=== PATIENT | female | born 1975 | race Caucasian/White ===

== ENCOUNTER 2017-11-20 12:58 | Inpatient (IN) | payer MEDICAID, OTHER ==
[2017-11-20] MEDS: ALBUTEROL 0.083% (NEB) 2.5 MG/3 ML AMP INH (14:03)
[2017-11-20] MEDS: IPRATROPIUM (NEB) 0.5 MG/2.5 ML AMP INH (14:04)
[2017-11-20] MEDS: FAMOTIDINE 20 MG INJ IV (14:12)
[2017-11-20] MEDS: DEXAMETHASONE 10 MG/ML 1 ML INJ IV (14:12)
[2017-11-20] MEDS: EPINEPHrine 1 MG INJ IM (14:12)
[2017-11-20] MEDS: DIPHENHYDRAMINE 50 MG INJ IV (14:12)
[2017-11-20] MEDS: AMPICILLIN/SULB 3 GM/NS (PMX) 100 ML IVPB (14:12)
[2017-11-20] MEDS: SODIUM CHLORIDE 0.9% 1L BAG IV* (14:13)
[2017-11-20] MEDS: SOD CHLORIDE 0.9% 100 ML (14:15)
[2017-11-20] MEDS: IOHEXOL 300MG/ML 150 ML BTL (14:15)
[2017-11-20 14:17] LABS: ADD MAN DIFF? NO
[2017-11-20 14:18] LABS: WHITE BLOOD COUNT 7.4 10^3/ul (4.8-10.8)
[2017-11-20 14:18] LABS: BASOPHILS % 0.8 % (0.0-2.0); EOSINOPHILS % 1.4 % (0.0-7.0); HEMATOCRIT 29.9 % (37.0-47.0); HEMOGLOBIN 9.6 g/dl (12.0-16.0); LYMPHOCYTES % 10.7 % (15.0-51.0); MEAN CORPUSCULAR HEMOGLOBIN 27.8 pg (29.0-33.0); MEAN CORPUSCULAR HGB CONC 32.1 g/dl (32.0-37.0); MEAN CORPUSCULAR VOLUME 86.7 fl (82.0-101.0); MEAN PLATELET VOLUME 11.4 fl (7.4-10.4); MONOCYTES % 4.5 % (0.0-11.0); NEUTROPHILS % 82.2 % (39.0-77.0); PLATELET COUNT 177 10^3/UL (140-415); RED BLOOD COUNT 3.45 10^6/ul (4.20-5.40); RED CELL DISTRIBUTION WIDTH 14.1 % (11.5-14.5)
[2017-11-20 14:19] LABS: BASOPHIL # 0.1 10^3/ul (0.0-0.1); EOSINOPHILS # 0.1 10^3/ul (0.0-0.5); LYMPHOCYTES # 0.8 10^3/ul (0.8-2.9); MONOCYTE # 0.3 10^3/ul (0.3-0.9); NEUTROPHIL # 6.1 10^3/ul (1.6-7.5)
[2017-11-20 14:36] LABS: ALANINE AMINOTRANSFERASE 62 IU/L (13-69); ALBUMIN/GLOBULIN RATIO 1.04; ALKALINE PHOSPHATASE 72 IU/L (42-121); ANION GAP 18 (8-16); ASPARTATE AMINO TRANSFERASE 72 IU/L (15-46); BILIRUBIN,INDIRECT 0.5 mg/dl (0-1.1); BILIRUBIN,TOTAL 0.5 mg/dl (0.2-1.3); BLOOD UREA NITROGEN 9 mg/dl (7-20); CALCIUM 9.5 mg/dl (8.4-10.2); CARBON DIOXIDE 27 mmol/L (21-31); CHLORIDE 104 mmol/L (97-110); CREATININE 1.05 mg/dl (0.44-1.00); GLUCOSE 93 mg/dl (70-220); POTASSIUM 3.7 mmol/L (3.5-5.1); SODIUM 145 mmol/L (135-144); TOTAL PROTEIN 9.8 g/dl (6.1-8.1)
[2017-11-20 14:37] LABS: ADD UMIC YES; UR ASCORBIC ACID NEGATIVE (NEGATIVE); UR BILIRUBIN (Dip) NEGATIVE (NEGATIVE); UR BLOOD (Dip) NEGATIVE (NEGATIVE); UR CLARITY CLEAR (CLEAR); UR COLOR YELLOW (YELLOW); UR GLUCOSE (Dip) NEGATIVE (NEGATIVE); UR KETONES (Dip) NEGATIVE (NEGATIVE); UR LEUKOCYTE ESTERASE (Dip) NEGATIVE Leu/ul (NEGATIVE); UR MUCUS FEW /HPF (NONE SEEN); UR NITRITE (Dip) NEGATIVE (NEGATIVE); UR NONSQUAMOUS EPITHELIAL CELL 1 /HPF (NONE SEEN); UR RBC 1 /HPF (0-5); UR TOTAL PROTEIN (Dip) 2+ mg/dl (NEGATIVE); UR UROBILINOGEN (Dip) NEGATIVE (NEGATIVE); UR WBC 7 /HPF (0-5)
[2017-11-20 14:38] LABS: INR 1.05; PROTIME 13.8 Sec (11.9-14.9); PT RATIO 1.1
[2017-11-20 14:42] LABS: LACTIC ACID 0.8 mmol/L (0.5-2.0)
[2017-11-20 14:49] LABS: TROPONIN-I < 0.010 ng/ml (0.000-0.120)
[2017-11-20] MEDS: VANCOMYCIN 1 GM (PMX) 250 ML IVPB (15:21)
[2017-11-20 16:44] LABS: LACTIC ACID 3.1 mmol/L (0.5-2.0)
[2017-11-20] MEDS: DEXTROSE 5%-0.45% NACL 1,000 ML IV (17:50)
[2017-11-20] MEDS ORDERED: ONDANSETRON 4 MG INJ IV ×2 (18:00)
[2017-11-20] MEDS ORDERED: NACL 0.9% 3 ML SYG IV (18:00)
[2017-11-20] MEDS ORDERED: DOCUSATE SODIUM 100 MG CAP PO (18:00)
[2017-11-20] MEDS ORDERED: VANCOMYCIN IV PER PHARMACY XX (18:00)
[2017-11-20] MEDS ORDERED: MAGNESIUM HYDROXIDE 30ML CUP PO (18:00)
[2017-11-20] MEDS ORDERED: BISACODYL (EC) 5 MG TAB PO (18:00)
[2017-11-20] MEDS ORDERED: ACETAMINOPHEN 325 MG TAB PO (18:00)
[2017-11-20] MEDS ORDERED: morphine 2 MG INJ IV (18:00)
[2017-11-20] MEDS ORDERED: LORAZEPAM 0.5 MG TAB PO (18:00)
[2017-11-20] MEDS: PIPER-TAZO 3.375 GM IV (PMX) 100 ML IVPB (18:07)
[2017-11-20] MEDS: DEXAMETHASONE 4 MG/ML 1 ML INJ IV (18:07)
[2017-11-20 18:21] LABS: LACTIC ACID 2.2 mmol/L (0.5-2.0)
[2017-11-21] MEDS: DEXAMETHASONE 4 MG/ML 1 ML INJ IV ×5 (01:24→23:59)
[2017-11-21] MEDS: PIPER-TAZO 3.375 GM IV (PMX) 100 ML IVPB ×5 (01:24→23:59)
[2017-11-21] MEDS: HEPARIN 5,000 UNIT/0.5 ML VIAL SC ×4 (01:26→21:30)
[2017-11-21] MEDS: VANCOMYCIN 1 GM in 250 ML IVPB ×3 (02:36→23:56)
[2017-11-21 05:42] LABS: ADD MAN DIFF? NO
[2017-11-21 05:47] LABS: ABNORMAL IP MESSAGE 1; BASOPHILS % 0.1 % (0.0-2.0); HEMATOCRIT 24.8 % (37.0-47.0); HEMOGLOBIN 7.9 g/dl (12.0-16.0); LYMPHOCYTES # 0.3 10^3/ul (0.8-2.9); LYMPHOCYTES % 3.3 % (15.0-51.0); MEAN CORPUSCULAR HEMOGLOBIN 27.8 pg (29.0-33.0); MEAN CORPUSCULAR HGB CONC 31.9 g/dl (32.0-37.0); MEAN CORPUSCULAR VOLUME 87.3 fl (82.0-101.0); MEAN PLATELET VOLUME 12.1 fl (7.4-10.4); MONOCYTE # 0.1 10^3/ul (0.3-0.9); MONOCYTES % 0.9 % (0.0-11.0); NEUTROPHIL # 8.6 10^3/ul (1.6-7.5); NEUTROPHILS % 95.1 % (39.0-77.0); PLATELET COUNT 142 10^3/UL (140-415); RED BLOOD COUNT 2.84 10^6/ul (4.20-5.40); RED CELL DISTRIBUTION WIDTH 14.2 % (11.5-14.5)
[2017-11-21 06:07] LABS: POSITIVE DIFF @See below
[2017-11-21 06:11] LABS: ALANINE AMINOTRANSFERASE 44 IU/L (13-69); ALBUMIN 4.3 g/dl (3.3-4.9); ALKALINE PHOSPHATASE 59 IU/L (42-121); ANION GAP 19 (8-16); ASPARTATE AMINO TRANSFERASE 44 IU/L (15-46); BILIRUBIN,INDIRECT 0.3 mg/dl (0-1.1); BILIRUBIN,TOTAL 0.3 mg/dl (0.2-1.3); BLOOD UREA NITROGEN 8 mg/dl (7-20); CALCIUM 8.8 mg/dl (8.4-10.2); CARBON DIOXIDE 23 mmol/L (21-31); CHLORIDE 107 mmol/L (97-110); CREATININE 0.99 mg/dl (0.44-1.00); GLUCOSE 171 mg/dl (70-220); POTASSIUM 3.4 mmol/L (3.5-5.1); SODIUM 146 mmol/L (135-144); TOTAL PROTEIN 7.6 g/dl (6.1-8.1)
[2017-11-21 06:11] LABS: LACTIC ACID 3.1 mmol/L (0.5-2.0)
[2017-11-21 06:29] LABS: FREE T4 (FREE THYROXINE) < 0.07 ng/dl (0.64-1.79)
[2017-11-21] MEDS: ACETAMINOPHEN 325 MG TAB PO ×2 (07:22→21:26)
[2017-11-21] MEDS: OXYCODONE/ACETAMINOPHEN (5/325) TAB PO (11:58)
[2017-11-21 12:20] LABS: HEMATOCRIT 24.3 % (37.0-47.0); HEMOGLOBIN 7.7 g/dl (12.0-16.0)
[2017-11-21 12:58] LABS: LACTIC ACID 2.2 mmol/L (0.5-2.0)
[2017-11-21] MEDS: DEXTROSE 5%-0.45% NACL 1,000 ML IV ×2 (13:35→19:11)
[2017-11-21] MEDS ORDERED: morphine LIQ (10 MG/5 ML) CUP PO (20:30)
[2017-11-21] MEDS: LACTOBACILLUS RHAMNOSUS CAP PO (21:25)
[2017-11-21 23:20] LABS: VANCOMYCIN,TROUGH 12.6 ug/ml (10.0-20.0)
[2017-11-22 05:54] LABS: ADD MAN DIFF? NO
[2017-11-22 05:59] LABS: ABNORMAL IP MESSAGE 1; BASOPHILS % 0.1 % (0.0-2.0); HEMATOCRIT 23.4 % (37.0-47.0); HEMOGLOBIN 7.5 g/dl (12.0-16.0); LYMPHOCYTES # 0.4 10^3/ul (0.8-2.9); LYMPHOCYTES % 3.1 % (15.0-51.0); MEAN CORPUSCULAR HEMOGLOBIN 27.9 pg (29.0-33.0); MEAN CORPUSCULAR HGB CONC 32.1 g/dl (32.0-37.0); MEAN PLATELET VOLUME 12.5 fl (7.4-10.4); MONOCYTE # 0.2 10^3/ul (0.3-0.9); MONOCYTES % 1.7 % (0.0-11.0); NEUTROPHIL # 12.6 10^3/ul (1.6-7.5); NEUTROPHILS % 93.7 % (39.0-77.0); PLATELET COUNT 149 10^3/UL (140-415); RED BLOOD COUNT 2.69 10^6/ul (4.20-5.40); RED CELL DISTRIBUTION WIDTH 14.6 % (11.5-14.5)
[2017-11-22 05:59] LABS: WHITE BLOOD COUNT 13.4 10^3/ul (4.8-10.8)
[2017-11-22 06:06] LABS: POSITIVE DIFF @See below
[2017-11-22] MEDS: PIPER-TAZO 3.375 GM IV (PMX) 100 ML IVPB ×2 (06:15→11:33)
[2017-11-22] MEDS: DEXAMETHASONE 4 MG/ML 1 ML INJ IV ×2 (06:15→11:19)
[2017-11-22] MEDS: HEPARIN 5,000 UNIT/0.5 ML VIAL SC ×2 (06:17→13:14)
[2017-11-22 06:19] LABS: INR 1.04; PROTIME 13.7 Sec (11.9-14.9); PT RATIO 1.1
[2017-11-22 06:20] LABS: PARTIAL THROMBOPLASTIN TIME 33.2 Sec (25.0-35.0)
[2017-11-22 06:44] LABS: IRON 25 ug/dl (35-150)
[2017-11-22 06:53] LABS: % IRON SATURATION 7 % SAT (22-52); TOTAL IRON BINDING CAPACITY 369 ug/dl (241-421)
[2017-11-22 07:03] LABS: HEMOGLOBIN A1C 5.4 % (0-5.9)
[2017-11-22 07:06] LABS: ALANINE AMINOTRANSFERASE 27 IU/L (13-69); ALBUMIN 3.7 g/dl (3.3-4.9); ALBUMIN/GLOBULIN RATIO 1.19; ALKALINE PHOSPHATASE 58 IU/L (42-121); ANION GAP 15 (8-16); ASPARTATE AMINO TRANSFERASE 32 IU/L (15-46); BILIRUBIN,INDIRECT 0.2 mg/dl (0-1.1); BILIRUBIN,TOTAL 0.2 mg/dl (0.2-1.3); BLOOD UREA NITROGEN 11 mg/dl (7-20); CALCIUM 8.7 mg/dl (8.4-10.2); CARBON DIOXIDE 24 mmol/L (21-31); CHLORIDE 110 mmol/L (97-110); CREATININE 0.96 mg/dl (0.44-1.00); GLUCOSE 137 mg/dl (70-220); MAGNESIUM 2.1 mg/dl (1.7-2.5); PHOSPHORUS 2.4 mg/dl (2.5-4.9); POTASSIUM 3.8 mmol/L (3.5-5.1); SODIUM 145 mmol/L (135-144); TOTAL PROTEIN 6.8 g/dl (6.1-8.1)
[2017-11-22 07:19] LABS: TRIIODOTHYRONINE 0.25 ng/ml (0.97-1.69)
[2017-11-22 07:23] LABS: FERRITIN 18.6 ng/ml (6.2-137.0)
[2017-11-22 08:15] LABS: FREE T4 (FREE THYROXINE) < 0.07 ng/dl (0.64-1.79)
[2017-11-22] MEDS: LACTOBACILLUS RHAMNOSUS CAP PO (08:23)
[2017-11-22] MEDS: VANCOMYCIN 1 GM in 250 ML IVPB (12:42)
[2017-11-22 15:12] LABS: OCCULT BLOOD STOOL NEGATIVE (NEGATIVE)
[2017-11-22] MEDS: LEVOTHYROXINE 25 MCG TAB PO (15:15)
[2017-11-22] MEDS: AMOXICILLIN/CLAV 875 MG TAB PO (17:34)
[2017-11-23] MEDS ORDERED: predniSONE 20 MG TAB PO (09:00)
== END 2017-11-22 19:10 | disposition home or self-care (01) | DRG 603 ==
LOC: MS3 17:35 → MS2 11-22 10:30 → E/R 12:58
DX: L03.211 Cellulitis of face (principal); E87.2 Acidosis; N39.0 Urinary tract infection, site not specified; D64.89 Other specified anemias; E03.9 Hypothyroidism, unspecified; D64.9 Anemia, unspecified; H02.402 Unspecified ptosis of left eyelid
CPT/HCPCS: 70486; 70491; 80053; 80202; 81001; 82270; 82306; 82728; 83036; 83540; 83605; 83735; 84100; 84439; 84443; 84480; 84484; 84703; 85014; 85018; 85025; 85610; 85730; 87040; 87086; 94664; 96372; 96374; 96375; 99291-25